=== PATIENT | female | born 1995 | race Caucasian/White ===

== ENCOUNTER 2022-09-02 23:13 | Inpatient (IN) | payer BC, SELFPAY ==
[2022-09-03] MEDS ORDERED: hydrALAZINE 20 MG/ML VIAL SLOW IVP PRN ×2 (00:21→05:48)
[2022-09-03] MEDS ORDERED: Fentanyl 100 MCG/2 ML VIAL SLOW IVP PRN (00:21)
[2022-09-03] MEDS ORDERED: HYDROcodone/Acetaminophen 5/325 mg Tablet PO PRN ×2 (00:21→05:48)
[2022-09-03] MEDS ORDERED: Methylergonovine 0.2 MG/ML VIAL IM PRN (00:21)
[2022-09-03] MEDS ORDERED: Lidocaine 1% (PF) 30 ML VIAL SC PRN (00:21)
[2022-09-03] MEDS ORDERED: Ibuprofen 800 MG TAB PO PRN (00:21)
[2022-09-03] MEDS ORDERED: Acetaminophen 500 MG TAB PO PRN (00:21)
[2022-09-03] MEDS ORDERED: Butorphanol Tartrate 1 MG/ML VIAL SLOW IVP PRN (00:21)
[2022-09-03] MEDS ORDERED: Carboprost 250 MCG/ML AMP IM PRN (00:21)
[2022-09-03] MEDS ORDERED: Ondansetron PF 4 MG/2 ML Vial IVP PRN (00:21)
[2022-09-03] MEDS ORDERED: Misoprostol 200 MCG TAB PR PRN (00:21)
[2022-09-03] MEDS ORDERED: Promethazine HCl 25 MG/ML VIAL IM PRN (00:21)
[2022-09-03] MEDS ORDERED: Lactated Ringer's 1,000 ML IV SCH (00:30)
[2022-09-03] MEDS ORDERED: NS w/ Oxytocin 30 units 500 ML IV SCH (00:30)
[2022-09-03 00:54] VITALS: BMI 26.2
[2022-09-03 01:06] LABS: Hemoglobin 12.1 g/dL (12.0-15.5); Mean Corpuscular HGB CONC 35.4 g/dL (32.0-36.0); Mean Corpuscular Volume 90.5 fl (81.6-98.3); Mean Platelet Volume 11.6 fl (7.4-10.4); Platelet Count 188 10x3/uL (150-450); RBC Distribution Width 13.1 % (11.5-14.5); Red Blood Cell (RBC) Count 3.78 10x6/uL (3.90-5.03); White Blood Cell (WBC) Count 8.9 10x3/uL (3.5-10.5)
[2022-09-03 01:40] LABS: Syphilis Antibody Nonreactive (Nonreactive); Syphilis Antibody Index 0.02 S/CO (<1.00 Non-Reactive)
[2022-09-03 01:42] LABS: HBSAg Index 0.21 S/CO (0-0.99); Hep B Surf Ag Non-Reactive S/CO (NonReactive)
[2022-09-03 02:57] LABS: SARS-CoV-2 NAA Rapid Test Not Detected (NotDetected)
[2022-09-03] MEDS ORDERED: Lidocaine 1% (PF) 30 ML VIAL ONE (03:18)
[2022-09-03] MEDS ORDERED: Benzocaine-Menthol 82.5 ML CAN TOP PRN (05:48)
[2022-09-03] MEDS ORDERED: Boostrix 0.5 ML (Tdap) VIAL (>/=7 yrs of age) IM ONE (05:48)
[2022-09-03] MEDS ORDERED: Lanolin Ointment 7 GM TUBE TOP PRN (05:48)
[2022-09-03] MEDS ORDERED: Bisacodyl 10 MG SUPP PR PRN (05:48)
[2022-09-03] MEDS ORDERED: Milk Of Magnesia 30 ML UDCUP PO PRN (05:48)
[2022-09-03] MEDS: Ibuprofen 800 MG TAB PO SCH ×3 (07:47→22:12)
[2022-09-03] MEDS: Ferrous Sulfate 325 MG TAB PO SCH ×2 (08:09→16:52)
[2022-09-03] MEDS: Docusate 100 MG CAP PO SCH ×2 (08:15→22:12)
[2022-09-04] MEDS: Docusate 100 MG CAP PO SCH ×2 (05:38→05:39)
[2022-09-04] MEDS: Ibuprofen 800 MG TAB PO SCH ×3 (05:38→14:08)
[2022-09-04 08:05] VITALS: BP 112/71; TEMP 98.7
[2022-09-04] MEDS: Ferrous Sulfate 325 MG TAB PO SCH (09:18)
== END 2022-09-04 15:50 | disposition home or self-care (01) | DRG 807 ==
LOC: CSHLD/OP 23:13 → CSHLD 09-03 00:51 → CSHPP 09-03 06:10
PROVIDERS: ADMIT Family Medicine; ATTEND Family Medicine
PROC: 10E0XZZ Delivery of Products of Conception, External Approach (ICD-10-PCS; principal; 2022-09-03)
DX: O69.81X0 Labor and delivery complicated by cord around neck, without compression, not applicable or unspecified (principal); Z37.0 Single live birth; Z3A.40 40 weeks gestation of pregnancy; Z20.822 Contact with and (suspected) exposure to COVID-19
CPT/HCPCS: 85027; 86780; 86850; 86900; 86901; 87340; 99285; J2590; U0002